=== PATIENT | male | born 1945 | race Caucasian/White ===

== ENCOUNTER 2017-04-10 13:36 | Inpatient (IN) | payer OTHER ==
[~2017-04-10] VITALS: Ht 177.8 cm; Wt 86.0 kg
[~2017-04-10 13:36] MED LIST: AMLO2.5T78 PO; CARB100T2 PO; DULO60CA59 PO; FINA5TAB4 PO; NAPR-688 PO; TAMS-14 PO
[2017-04-10] MEDS ORDERED: LORAZEPAM 2 MG INJ ONE (13:45)
[2017-04-10] MEDS ORDERED: LEVETIRACETAM 1000 MG (PMX) 100 ML IVPB ONE (14:00)
[2017-04-10] MEDS ORDERED: LORAZEPAM 2 MG INJ IV ONE (14:00)
--- NOTE | 2017-04-10 14:01 | ERD ---
ER Documentation Chief Complaint Chief Complaint bib ems post ictal , rt side weakness , rt side facial droop , non verbal HPI This is a 72-year-old male with a reported history of a seizure disorder, unclear if he is compliant on his Tegretol, hypertension, BPH who is presenting after a seizure episode with increasing confusion. The patient was reportedly at work when he had a witnessed seizure event approximately 1 hour prior to arrival. The patient was initially confused but he slowly returned to baseline and decided to return to work. However, the patient's boss felt that he was not acting quite himself so he called an ambulance. When the paramedics arrived , the patient was able to state his name. However, he slowly became more more confused and ultimately became nonverbal during transport. The patient was moving his left side, but he seemed to be ignoring his right. The patient is breathing on his own with normal vital signs in the emergency department, but he would not answer any questions. He initially seemed to be moving his left side only, but he did at one point across his right leg over his left. During the initial assessment, the patient's eyes deviated to the right and he had a witnessed generalized tonic-clonic seizure that lasted approximately 2 minutes before resolution. ROS Unable to obtain secondary to patient's altered mentation Medications Home Meds Reported Medications Tamsulosin Hcl* (Flomax*) 0.4 Mg Cap.er.24h, 0.4 MG PO DAILY, CAP 03/27/15 Amlodipine Besylate* (Amlodipine Besylate*) 2.5 Mg Tablet, 2.5 MG PO DAILY, TAB 03/27/15 Finasteride* (Finasteride*) 5 Mg Tablet, 5 MG PO DAILY, TAB 03/27/15 Carbamazepine* (Carbamazepine*) 100 Mg Tab.chew, 100 MG PO AM, TAB.CHEW 03/27/15 Carbamazepine* (Carbamazepine*) 100 Mg Tab.chew, 200 MG PO PM, TAB.CHEW 03/27/15 Duloxetine Hcl* (Duloxetine Hcl*) 60 Mg Capsule.dr, 60 MG PO DAILY, CAP 03/27/15 Naproxen* (Naproxen*) 500 Mg Tablet, 500 MG PO Q12 Y for PAIN, TAB 03/27/15 Allergies Allergies: Coded Allergies: No Known Allergy (Unverified , 10/10/14) PMhx/Soc History of Surgery: Yes (cholecystectomy-lap) Anesthesia Reaction: No Hx Neurological Disorder: Yes (seizure) Hx Respiratory Disorders: No Hx Cardiac Disorders: No Hx Psychiatric Problems: No Hx Miscellaneous Medical Probl: No Hx Alcohol Use: No Hx Substance Use: No Hx Tobacco Use: No FmHx Unable to obtain secondary to patient's altered mentation Physical Exam Vitals Vital Signs Date Time Temp Pulse Resp B/P Pulse Ox O2 Delivery O2 Flow Rate FiO2 04/10/17 14:29 80 18 140/82 100 Nasal Cannula 2.0 04/10/17 13:45 Non Rebreather 15 04/10/17 13:45 98.2 94 16 185/87 98 Physical Exam Const: Well-developed, well-nourished Head: Atraumatic Eyes: Normal Conjunctiva. Extraocular movements intact. Eyes deviated right during seizure event. ENT: Normal External Ears, Nose and Mouth. No oral trauma or tongue biting Neck: No meningismus. Resp: Clear to auscultation bilaterally. No foaming at the mouth during seizure event. Cardio: Regular rate and rhythm at baseline in the emergency department without murmurs. Patient was tachycardic into the 130s for 2 minutes during the seizure event that resolved after the event subsided. Abd: Soft, non tender, non distended. Normal bowel sounds Skin: No petechiae or rashes Back: No midline or flank tenderness Ext: No cyanosis, or edema, radial and tibial pulses strong bilaterally. Neur: Lethargic but arousable. Outside of seizure event, the patient would open his eyes to voice. He followed commands on the left side only immediately after the seizure, but later in his course followed commands in all extremities with normal strength and sensation. Cranial nerves intact. No facial droop. During the seizure event, the patient had full body tonic-clonic shaking for approximately 2 minutes. Result Diagram: 04/10/17 1355 04/10/17 1355 Results 24 hrs Laboratory Tests Test 04/10/17 13:55 White Blood Count 13.110^3/ul Red Blood Count 3.8510^6/ul Hemoglobin 12.3g/dl Hematocrit 35.9% Mean Corpuscular Volume 93.2fl Mean Corpuscular Hemoglobin 31.9pg Mean Corpuscular Hemoglobin Concent 34.3g/dl Red Cell Distribution Width 12.8% Platelet Count 42550^3/UL Mean Platelet Volume 8.8fl Neutrophils % 60.9% Lymphocytes % 30.6% Monocytes % 7.6% Eosinophils % 0.2% Basophils % 0.2% Nucleated Red Blood Cells % 0.0/100WBC Neutrophils # 8.010^3/ul Lymphocytes # 4.010^3/ul Monocytes # 1.010^3/ul Eosinophils # 0.010^3/ul Basophils # 0.010^3/ul Nucleated Red Blood Cells # 0.010^3/ul Prothrombin Time 13.6Sec Prothrombin Time Ratio 1.1 INR International Normalized Ratio 1.04 Activated Partial Thromboplast Time 29.4Sec Sodium Level 139mmol/L Potassium Level 3.3mmol/L Chloride Level 102mmol/L Carbon Dioxide Level 20mmol/L Anion Gap 20 Blood Urea Nitrogen 12mg/dl Creatinine 1.11mg/dl Glucose Level 126mg/dl Hemoglobin A1c 5.5% Calcium Level 9.3mg/dl Troponin I Pending Current Medications Medications (Trade) Dose Ordered Sig/Shagufta Route PRN Reason Start Time Stop Time Status Last Admin Dose Admin Levetiracetam (Keppra 1,000mg/ 100ml (Pmx)) 100 ml @ 400 mls/hr ONCE ONCE IVPB 04/10/17 14:00 04/10/17 14:14 DC 04/10/17 14:10 Lorazepam (Ativan) 2 mg ONCE ONCE IV 04/10/17 14:00 04/10/17 14:01 DC 04/10/17 13:48 Procedures/MDM MDM The patient's presentation warrants further investigation. I do suspect recurrent seizures as the etiology of his symptoms given his overall presentation. The patient was seizing at time of my original examination. His eyes deviated to the right with full body tonic-clonic shaking, which is typical of a seizure. The patient was given 2 mg of Ativan which broke his seizure. He will also be loaded with 1 g of Keppra. After the event, he was examined and he seemed to be neglecting his right side with decreased sensation and strength. This is possibly Tyrel's paralysis, but a stroke or hemorrhage cannot be ruled out. At this time, a code stroke was called. LABS The patient's blood work was obtained and reviewed. The patient's CBC shows a leukocytosis but no left shift. This is likely a stress reaction related to his seizure. The patient is afebrile and does not appear systemically ill. I do not suspect a systemic infection. The patient is mildly anemic today, which does not require emergent treatment. The patient's platelet count is unremarkable. The patient's BMP shows a mild anion gap metabolic acidosis, which also correlates with a seizure. I do not suspect sepsis. The patient has normal renal function testing. The patient also had mild hypokalemia that does not require emergent treatment. Patient's hemoglobin A1c is within normal limits. His troponin is indeterminate at 0.015. This may be further evaluated in the hospital, but I have low suspicion for ACS. His tegretol level is negative. EKG EKG read by me: Rate/Rhythm: Regular rate and rhythm at a rate of 81 Intervals: Normal QRS and QTc. Prolonged NH interval indicating a first-degree AV block [place]: Normal Impression: No evidence of ischemia or arrhythmia IMAGING CT Head FINDINGS: The posterior fossa structures are unremarkable. The maritza, midbrain, and medulla appear to be with normal limits. There is no evidence of acute intracranial hemorrhage, infarct, or extra-axial fluid collection. No gross mass effect or midline shift. Cerebral sulci, cisternal spaces, and ventricles are prominent. Mild periventricular white matter lucencies are noted. The visualized paranasal sinuses are clear. The mastoid air cells are well-aerated. The calvarium is unremarkable. There is an old fracture deformity of the right lamina papyracea. IMPRESSION: No evidence of acute intracranial hemorrhage, infarct, or extra- axial fluid collection. If clinical symptoms persist, or suspicion remains MRI would be more sensitive. Cortical atrophy and mild periventricular/subcortical white matter changes, likely consistent with chronic microvascular angiopathy. Electronically viewed and signed by Physician Belkis on 04/10/2017 14:08 CXR FINDINGS: The trachea is delayed towards the right. The cardiac silhouette is enlarged and pulmonary vascularity are within normal limits. The lungs are clear. The costophrenic angles are sharp. IMPRESSION: Cardiomegaly. No evidence of acute cardiopulmonary disease. Electronically viewed and signed by Physician Belkis on 04/10/2017 14:32 TREATMENT/DISPOSITION The patient's symptoms continue to resolve in the emergency department. I do suspect Tyrel's paralysis as the etiology of his transient right-sided deficits. The patient was given Ativan to break the seizure. He was bolused with Keppra. Tele-psychiatrist did evaluate the patient. He felt like his symptoms were more consistent with seizure over cerebral ischemia. We reviewed the CT scan together and we did not feel that he had a presentation concerning with stroke or hemorrhage. At this time, I feel that the patient requires admission for further evaluation and management. A Tegretol level was low, with medication noncompliance. The neurologist felt that it was appropriate for the patient to be admitted for possible adjustment of his medications. The patient had a seizure episode and did not return to baseline prior to having another seizure episode. It is unclear if he could have had a third. The patient's troponin was mildly elevated in the indeterminate region, but it was technically within the normal limits of our test. This may be trended in the hospital, but I have low suspicion for acute coronary syndrome. The patient 's EKG is also reassuring. The patient will be admitted to Dr. Sibley in accordance with the patient's insurance. The patient's blood pressure was elevated at greater than 120/80 while in the emergency department. The patient was otherwise stable with no evidence of hypertensive urgency or emergency. The patient will require reevaluation of his blood pressure, but this may ultimately be completed by a primary care physician as an outpatient. Departure Diagnosis: Primary Impression: Breakthrough seizure Additional Impressions: Tyrel's paralysis (postepileptic) Elevated troponin I level Noncompliance with medications Condition: SEE Galdamez MD Apr 10, 2017 14:01
--- NOTE | 2017-04-10 14:09 | RADRPT ---
PROCEDURE: CT BRAIN WITHOUT CONTRAST. CLINICAL INDICATION: Right-sided weakness and facial droop TECHNIQUE: A CT of the brain was performed on a multidetector high-resolution CT scanner utilizing axial imaging from the skull base through the vertex without IV contrast. Multiplanar reformatted images were made. Images were reviewed on a PACS workstation. The CTDIvol is 45 mGy and the DLP is 720.2 mGycm. One or more of the following dose reduction techniques were used: - Automated exposure control. - Adjustment of the mA and/or kV according to patient size. - Use of iterative reconstruction technique. COMPARISON: March 27, 2015 FINDINGS: The posterior fossa structures are unremarkable. The maritza, midbrain, and medulla appear to be with n ormal limits. There is no evidence of acute intracranial hemorrhage, infarct, or extra-axial fluid collection. No gross mass effect or midline shift. Cerebral sulci, cisternal spaces, and ventricles are prominent. Mild periventricular white matter lucencies are noted.. The visualized paranasal sinuses are clear. The mastoid air cells are well-aerated. The calvarium is unremarkable. There is an old fracture deformity of the right lamina papyracea. IMPRESSION: 1. No evidence of acute intracranial hemorrhage, infarct, or extra-axial fluid collection. If clinic al symptoms persist, or suspicion remains MRI would be more sensitive. 2. Cortical atrophy and mild periventricular/subcortical white matter changes, likely consistent wit h chronic microvascular angiopathy. RPTAT: AARR Physician Belkis Date Time Electronically viewed and signed by Physician Belkis on 04/10/2017 14:08 LINDA/
--- NOTE | 2017-04-10 14:23 | STROKE ---
Date/Time of Note Date/Time of Note DATE: 04/10/17 TIME: 16:22 Patient Information General Patient location: emergency Arrival Date Age 72 Gender male Weight 86 kg Vital Signs Vital Signs Vital Signs Date Time Temp Pulse Resp B/P Pulse Ox O2 Delivery O2 Flow Rate FiO2 04/10/17 13:45 Non Rebreather 15 04/10/17 13:45 98.2 94 16 185/87 98 Patient History Current Medications Allergies: Coded Allergies: No Known Allergy (Unverified , 10/10/14) Labs Hematology Labs Hematology Test 04/10/17 13:55 White Blood Count 13.110^3/ul (4.8-10.8) Red Blood Count 3.8510^6/ul (4.70-6.10) Hemoglobin 12.3g/dl (14.0-18.0) Hematocrit 35.9% (42.0-52.0) Mean Corpuscular Volume 93.2fl (82.0-101.0) Mean Corpuscular Hemoglobin 31.9pg (29.0-33.0) Mean Corpuscular Hemoglobin Concent 34.3g/dl (32.0-37.0) Red Cell Distribution Width 12.8% (11.5-14.5) Platelet Count 63474^3/UL (140-415) Mean Platelet Volume 8.8fl (7.4-10.4) Neutrophils % 60.9% (39.0-77.0) Lymphocytes % 30.6% (15.0-51.0) Monocytes % 7.6% (0.0-11.0) Eosinophils % 0.2% (0.0-7.0) Basophils % 0.2% (0.0-2.0) Nucleated Red Blood Cells % 0.0/100WBC (0.0-0.0) Neutrophils # 8.010^3/ul (1.6-7.5) Lymphocytes # 4.010^3/ul (0.8-2.9) Monocytes # 1.010^3/ul (0.3-0.9) Eosinophils # 0.010^3/ul (0.0-0.5) Basophils # 0.010^3/ul (0.0-0.1) Nucleated Red Blood Cells # 0.010^3/ul (0.0-0.0) History & Physical History of Present Illness 72 YO M with PMH seizure disorder on Tegretol with unclear compliance with two witnessed GTCs preceded by right gaze deviation, now with right hemiparesis after his second GTC. R hemiparesis rapidly resolving in ED. Loaded with Keppra 1 g and given ativan. Tegretol level sent. NIH Stroke Scale NIH Stroke Scale Total Score: 3 Date/Time Recorded DATE: 04/10/17 TIME: 16:22 Submitted By Geo Marques t-PA Imaging Review Date/Time Imaging Reviewed DATE: 04/10/17 TIME: 16:22 t-PA Administration Weight 86 kg Recommedation submitted by Geo Marques Recommendations Impression Diagnosis 72 YO M with known seizure disorder and 2 GTCs today, with R gaze deviation and now R hemiparesis after second GTC. Presentation most consistent with Tyrel's paresis. Likely L hemispheric seizure onset. Given ativan and Keppra in ED Recommendation - Agree with admission for observation - Keppra 1 g load given in ED as well as Ativan. Patient exam normalizing - No further emergent work-up for stroke - Agree with checking AED levels to investigate for noncompliance. After levels sent would administer all home AEDs - Consult local Neuro to follow and guide further care GEO MARQUES MD Apr 10, 2017 14:23
--- NOTE | 2017-04-10 14:33 | RADRPT ---
PROCEDURE: XR Chest. CLINICAL INDICATION: Short of breath TECHNIQUE: Single portable view of the chest was obtained COMPARISON: March 27, 2015 FINDINGS: The trachea is delayed towards the right. The cardiac silhouette is enlarged and pulmonary vasculari ty are within normal limits. The lungs are clear. The costophrenic angles are sharp. IMPRESSION: 1. Cardiomegaly. No evidence of acute cardiopulmonary disease. RPTAT: AARR Physician Belkis Date Time Electronically viewed and signed by Physician Belkis on 04/10/2017 14:32 JL/
[2017-04-10] MEDS ORDERED: ONDANSETRON 4 MG INJ IV PRN ×2 (15:00→16:30)
[2017-04-10] MEDS ORDERED: ACETAMINOPHEN 325 MG TAB PO PRN ×2 (15:00→16:30)
[2017-04-10] MEDS ORDERED: LORAZEPAM 2 MG INJ IV PRN (16:00)
[2017-04-10] MEDS: SOD CHLORIDE 0.9% 1,000 ML IV SCH ×2 (16:24→23:10)
[2017-04-10] MEDS ORDERED: ACETAMINOPHEN 650 MG SUPP PR PRN (16:30)
[2017-04-10] MEDS ORDERED: NACL 0.9% 3 ML SYG IV SCH (16:30)
[2017-04-10] MEDS ORDERED: MAGNESIUM HYDROXIDE 30ML CUP PO PRN (16:30)
[2017-04-10] MEDS ORDERED: DOCUSATE SODIUM 100 MG CAP PO PRN (16:30)
[2017-04-10] MEDS ORDERED: BISACODYL 10 MG SUPP PR PRN (16:30)
--- NOTE | 2017-04-10 16:58 | HP ---
Date/Time of Note Date/Time of Note DATE: 04/10/17 TIME: 16:57 Assessment/Plan VTE Prophylaxis VTE Prophylaxis Intervention: SCD's Lines/Catheters IV [facility]ter [facility]from [facility] Saline Lock Assessment/Plan Assessment/Plan 72 yo male with: 1. Seizure disorder, uncontrolled, status post general tonic-clonic seizures, undetectable level of carbamazepine. Likely noncompliant. Has been started on Keppra, appreciate recommendations from tele-neurology, outpatient medication resumed, monitor overnight. MRI brain and CT brain are both negative for acute findings. Patient's mental status seems to be back to baseline. 2. Benign prostatic hypertrophy: Continue outpatient medications 3. Hypertension: Resume Norvasc 4. Marijuana use: Medical purposes according to patient, for seizure management and insomnia Prophylaxis: SCDs for DVT ppx and Pepcid for GI ppx Disposition: Monitor overnight, is no seizures overnight, discharge planning in the morning with outpatient neurology referral/follow-up HPI/ROS Admit Date/Time Admit Date/Time Hx of Present Illness Chief complaint: Seizures History of presenting illness: This is a 72-year-old male with known epilepsy and seizures, previous admissions with seizures related to noncompliance likely , who was brought into the emergency department from his work with reported seizures. Patient proceeded and had 2 episodes of general tonic-clonic seizures in the ER. He was noted to have Tyrel's paralysis afterwards with right facial droop and right hemiparesis, he was evaluated by tele-neurology, the patient paralysis resolved quickly in the ER. CAT scan of the brain is within normal. MRI is also within normal. He is a carbamazepine level is undetectable, patient reports that he is compliant which is doubtful. He also reports that he smokes marijuana every night to control his seizures and also for insomnia. He is mental status seems to be close to baseline however he seems to be forgetful currently. His carbamazepine has been resumed as of tonight, he is also on Keppra IV. He will be observed overnight, if no seizures will plan for discharge tomorrow with additional Keppra for seizure control and outpatient follow-up with neurology. ROS Constitutional: no complaints Respiratory: no complaints Cardiovascular: no complaints Gastrointestinal: no complaints Genitourinary: no complaints Musculoskeletal: no complaints Skin: no complaints Neurologic: confusion (mild), seizure (GTC x 2 ) Psychological: no complaints Immunologic: no complaints PMH/Family/Social Past Medical History Hypertension Benign prostatic hypertrophy Seizure disorder Major depressive disorder Past Surgical History Past Surgical Hx: no surgical history Family History Significant Family History: no pertinent family hx Social History Alcohol Use: none Smoking Status: Never smoker Drug Use: marijuana (daily to sleep and for seizure management according to patient) Exam/Review of Systems Vital Signs Vitals Vital Signs Date Time Temp Pulse Resp B/P Pulse Ox O2 Delivery O2 Flow Rate FiO2 04/10/17 16:33 73 18 127/71 99 Room Air 04/10/17 14:29 2.0 04/10/17 13:45 98.2 Exam Constitutional: alert, oriented, other (Patient mental status back to baseline status post seizures), well developed Psych: no complaints Respiratory: clear to auscultation, normal air movement Cardiovascular: nl pulses, regular rate and rhythm Gastrointestinal: non-tender, soft Musculoskeletal: nl extremities to inspection Extremities: normal pulses, other (No edema, clubbing or cyanosis) Neurological: CROSS ENTERPRISE INTEGRATOR II-XII intact, nl mental status, nl speech, nl strength Labs Result Diagram: 04/10/17 1355 04/10/17 1355 Medications Medications Current Medications Amlodipine Besylate (Norvasc) 2.5 mg DAILY PO ; Start 04/11/17 at 09:00 Carbamazepine (Tegretol) 100 mg AM PO ; Start 04/11/17 at 09:00 Carbamazepine (Tegretol) 200 mg QHS PO ; Start 04/10/17 at 21:00 Duloxetine HCl (Cymbalta) 60 mg DAILY PO ; Start 04/11/17 at 09:00 Finasteride (Proscar) 5 mg DAILY PO ; Start 04/11/17 at 09:00 Tamsulosin HCl 0.4 mg 0.4 mg DAILY PO ; Start 04/11/17 at 09:00 Levetiracetam (Keppra 1,000mg/ 100ml (Pmx)) 100 ml @ 400 mls/hr Q12 IVPB ; Start 04/10/17 at 21:00 Lorazepam 1 mg 1 mg Q4H PRN IV SEIZURES; Start 04/10/17 at 16:00 Sodium Chloride (NS) 1,000 ml @ 100 mls/hr Q10H IV Last administered on t 16:24; Admin Dose 100 MLS/HR; Start 04/10/17 at 16:01 Ondansetron HCl (Zofran Inj) 4 mg Q6H PRN IV NAUSEA AND/OR VOMITING; Start at 16:30 Acetaminophen (Tylenol Tab) 650 mg Q6H PRN PO PAIN LEVEL 1-3 OR FEVER; Start 04/10/17 at 16:30 Acetaminophen (Tylenol Supp) 650 mg Q6H PRN TN PAIN LEVEL 1-3 OR FEVER; Start 04/10/17 at 16:30 Docusate Sodium (Colace) 100 mg Q12H PRN PO CONSTIPATION; Start 04/10/17 at 16 :30 Magnesium Hydroxide (Milk Of Mag) 30 ml DAILY PRN PO CONSTIPATION; Start 04/10 at 16:30 Bisacodyl (Dulcolax Supp) 10 mg DAILY PRN TN CONSTIPATION; Start 04/10/17 at 16:30 Famotidine (Pepcid Iv) 20 mg Q12 IV ; Start 04/10/17 at 21:00 Procedures Procedures PROCEDURE: CT BRAIN WITHOUT CONTRAST. CLINICAL INDICATION: Right-sided weakness and facial droop TECHNIQUE: A CT of the brain was performed on a multidetector high-resolution CT scanner utilizing axial imaging from the skull base through the vertex without IV contrast. Multiplanar reformatted images were made. Images were reviewed on a PACS workstation. The CTDIvol is 45 mGy and the DLP is 720.2 mGycm. One or more of the following dose reduction techniques were used: - Automated exposure control. - Adjustment of the mA and/or kV according to patient size. - Use of iterative reconstruction technique. COMPARISON: March 27, 2015 FINDINGS: The posterior fossa structures are unremarkable. The maritza, midbrain, and medulla appear to be with normal limits. There is no evidence of acute intracranial hemorrhage, infarct, or extra-axial fluid collection. No gross mass effect or midline shift. Cerebral sulci, cisternal spaces, and ventricles are prominent. Mild periventricular white matter lucencies are noted.. The visualized paranasal sinuses are clear. The mastoid air cells are well- aerated. The calvarium is unremarkable. There is an old fracture deformity of the right lamina papyracea. IMPRESSION: 1. No evidence of acute intracranial hemorrhage, infarct, or extra-axial fluid collection. If clinical symptoms persist, or suspicion remains MRI would be more sensitive. 2. Cortical atrophy and mild periventricular/subcortical white matter changes, likely consistent with chronic microvascular angiopathy. RPTAT: AARR Physician Belkis Date Time Electronically viewed and signed by Physician Belkis on 04/10/2017 14:08 PROCEDURE: XR Chest. CLINICAL INDICATION: Short of breath TECHNIQUE: Single portable view of the chest was obtained COMPARISON: March 27, 2015 FINDINGS: The trachea is delayed towards the right. The cardiac silhouette is enlarged and pulmonary vascularity are within normal limits. The lungs are clear. The costophrenic angles are sharp. IMPRESSION: 1. Cardiomegaly. No evidence of acute cardiopulmonary disease. RPTAT: AARR Physician Belkis Date Time Electronically viewed and signed by Physician Belkis on 04/10/2017 14:32 JL/ PROCEDURE: MR Brain without contrast. CLINICAL INDICATION: Neurologic deficit ; seizure TECHNIQUE: An MRI of the brain was performed on a high-resolution MR scanner utilizing the following sequences: Sagittal and axial T1 weighted, axial T2 weighted, axial FLAIR, coronal GRE, coronal T2, coronal T1 3-D SPGR, and axial diffusion weighted with ADC mapping. Images were reviewed high-resolution PACS workstation. No contrast was administered. COMPARISON: Head CT earlier today, brain MR 10/11/2014 FINDINGS: No acute parenchymal hemorrhage, mass effect, or midline shift. No evidence of recent infarct. Scattered subcortical, deep, and periventricular white matter T2 -weighted/FLAIR hyperintensities are consistent with chronic microvascular ischemic disease. Prominence of the cortical sulci and ventricles are related to mild cerebral volume loss. No evidence of mesial temporal sclerosis or cortical encephalomalacia. No suspicious parenchymal hypointense signal abnormalities are seen on the GRE images to suggest the presence of blood degradation products. Normal flow voids are visible in the proximal intracranial arteries suggesting their patency. No significant opacification of the paranasal sinuses or mastoids. IMPRESSION: No acute intracranial abnormality or evidence of recent infarct. Mild chronic microvascular disease. RPTAT: AA .Bautista Cheney MD, Date Time Electronically viewed and signed by .Bautista Cheney MD, MD on 04/10/2017 17:35 TANVI SMITH Apr 10, 2017 16:58
--- NOTE | 2017-04-10 17:35 | RADRPT ---
PROCEDURE: MR Brain without contrast. CLINICAL INDICATION: Neurologic deficit ; seizure TECHNIQUE: An MRI of the brain was performed on a high-resolution MR scanner utilizing the followi ng sequences: Sagittal and axial T1 weighted, axial T2 weighted, axial FLAIR, coronal GRE, coronal T 2, coronal T1 3-D SPGR, and axial diffusion weighted with ADC mapping. Images were reviewed high-res [employer] PACS workstation. No contrast was administered. COMPARISON: Head CT earlier today, brain MR 10/11/2014 FINDINGS: No acute parenchymal hemorrhage, mass effect, or midline shift. No evidence of recent infarct. Scatt ered subcortical, deep, and periventricular white matter T2-weighted/FLAIR hyperintensities are cons istent with chronic microvascular ischemic disease. Prominence of the cortical sulci and ventricles are related to mild cerebral volume loss. No evidence of mesial temporal sclerosis or cortical ence phalomalacia. No suspicious parenchymal hypointense signal abnormalities are seen on the GRE images to suggest the presence of blood degradation products. Normal flow voids are visible in the proximal intracranial arteries suggesting their patency. No significant opacification of the paranasal sinuses or mastoids. IMPRESSION: No acute intracranial abnormality or evidence of recent infarct. Mild chronic microvascular disease. RPTAT: AA .Bautista Cheney MD, Date Time Electronically viewed and signed by .Bautista Cheney MD, on 04/10/2017 17:35 .T/
[2017-04-10] MEDS ORDERED: LEVETIRACETAM 1000 MG (PMX) 100 ML IVPB SCH (21:00)
[2017-04-10] MEDS ORDERED: carBAMAZepine CHEW 100 MG CHEW PO SCH (21:00)
[2017-04-10] MEDS: FAMOTIDINE 20 MG INJ IV SCH (21:05)
[2017-04-10 22:13] VITALS: TEMP 98.7
[2017-04-10 23:30] VITALS: Ht 177.8 cm; Wt 86.0 kg
[2017-04-11] VITALS (7 sets, daily range): BP systolic 139–162; BP diastolic 71–77; PULSE 53–75; RESP 17–20
[2017-04-11] MEDS: SOD CHLORIDE 0.9% 1,000 ML IV SCH ×2 (02:01→09:54)
[2017-04-11] MEDS: FAMOTIDINE 20 MG INJ IV SCH (08:46)
[2017-04-11] MEDS ORDERED: TAMSULOSIN (SR) 0.4 MG CAP PO SCH (09:00)
[2017-04-11] MEDS ORDERED: FINASTERIDE 5 MG TAB PO SCH (09:00)
[2017-04-11] MEDS ORDERED: carBAMAZepine CHEW 100 MG CHEW PO SCH (09:00)
[2017-04-11] MEDS ORDERED: DULOXETINE 30 MG CAP DR PO SCH (09:00)
[2017-04-11] MEDS ORDERED: AMLODIPINE 2.5 MG TAB PO SCH (09:00)
[2017-04-11] MEDS ORDERED: LEVETIRACETAM 500 MG TAB PO SCH (09:30)
--- NOTE | 2017-04-11 10:32 | PN ---
Date/Time of Note Date/Time of Note DATE: 04/11/17 TIME: 10:29 Assessment/Plan VTE Prophylaxis VTE Prophylaxis Intervention: SCD's Lines/Catheters IV [facility] Type [facility] Peripheral IV Assessment/Plan Assessment/Plan 72 yo male with: 1. Seizure disorder, uncontrolled, status post general tonic-clonic seizures, undetectable level of carbamazepine on admission. Likely noncompliant. Patient was no seizures overnight, will continue Keppra 1000 mg twice daily at the time of discharge along with his carbamazepine, MRI and CAT scan of the brain are both negative, therefore patient will be discharged with outpatient follow-up with neurology. Off note patient has indicated that he is also using marijuana to control his seizures. Mental status back to baseline, no neurological deficit noted. 2. Benign prostatic hypertrophy: Continue outpatient medications 3. Hypertension: Continue Norvasc 4. Marijuana use: Medical purposes according to patient, for seizure management and insomnia Prophylaxis: SCDs for DVT ppx and Pepcid for GI ppx Disposition: Discharge home today and follow-up with outpatient primary care physician and referral to neurology for seizure disorder. Subjective 24 Hr Interval Summary Free Text/Dictation Patient doing well, no additional seizures since admission, he is eating well this morning, tolerating p.o. No neurological deficit. He will be discharged home on Keppra as an additional antiepileptic. He needs to be referred to neurology as an outpatient. Exam/Review of Systems Vital Signs Vitals Vital Signs Date Time Temp Pulse Resp B/P Pulse Ox O2 Delivery O2 Flow Rate FiO2 04/11/17 08:00 58 04/11/17 07:54 97.7 17 142/76 96 04/10/17 22:13 Room Air 04/10/17 14:29 2.0 Intake and Output 04/10/17 04/10/17 04/11/17 15:00 23:00 07:00 Intake Total 940 ml Output Total 600 ml Balance 340 ml Exam Constitutional: alert, oriented, well developed Respiratory: clear to auscultation, normal air movement Cardiovascular: nl pulses, regular rate and rhythm Gastrointestinal: non-tender, soft Musculoskeletal: nl extremities to inspection Extremities: normal pulses, other (No edema, clubbing or cyanosis) Neurological: P[employer]ED [employer] II-XII intact, nl mental status, nl speech, nl strength Results Result Diagram: 04/11/1759 04/11/1759 Results 24 hrs Laboratory Tests Test 04/10/17 13:55 04/10/17 16:55 04/10/17 17:55 04/11/17 06:59 White Blood Count 13.1 #H 7.0 # Red Blood Count 3.85 #L 3.55 L Hemoglobin 12.3 #L 11.0 L Hematocrit 35.9 L 32.9 L Mean Corpuscular Volume 93.2 92.7 Mean Corpuscular Hemoglobin 31.9 31.0 Mean Corpuscular Hemoglobin Concent 34.3 33.4 Red Cell Distribution Width 12.8 13.0 Platelet Count 240 193 Mean Platelet Volume 8.8 # 9.0 Neutrophils % 60.9 63.4 Lymphocytes % 30.6 25.7 Monocytes % 7.6 9.5 Eosinophils % 0.2 0.7 Basophils % 0.2 0.4 Nucleated Red Blood Cells % 0.0 0.0 Neutrophils # 8.0 H 4.5 Lymphocytes # 4.0 H 1.8 Monocytes # 1.0 H 0.7 Eosinophils # 0.0 0.1 Basophils # 0.0 0.0 Nucleated Red Blood Cells # 0.0 0.0 Prothrombin Time 13.6 Prothrombin Time Ratio 1.1 INR International Normalized Ratio 1.04 Activated Partial Thromboplast Time 29.4 Sodium Level 139 144 Potassium Level 3.3 L 4.5 Chloride Level 102 111 H Carbon Dioxide Level 20 L 26 Anion Gap 20 H 12 # Blood Urea Nitrogen 12 10 Creatinine 1.11 1.01 Glucose Level 126 105 Hemoglobin A1c 5.5 Calcium Level 9.3 8.7 Troponin I 0.015 Carbamazepine (Tegretol) Level < 3.0 L Creatine Kinase 285 H Urine Color STRAW Urine Clarity CLEAR Urine pH 7.0 Urine Specific [place] 1.004 Urine Ketones NEGATIVE Urine Nitrite NEGATIVE Urine Bilirubin NEGATIVE Urine Urobilinogen NEGATIVE Urine Leukocyte Esterase NEGATIVE Urine Hemoglobin NEGATIVE Urine Glucose NEGATIVE Urine Total Protein NEGATIVE Urine Opiates Screen Negative Urine Barbiturates Negative Urine Amphetamines Screen Negative Urine Benzodiazepines Screen Negative Urine Cocaine Screen Negative Urine Cannabinoids Negative Magnesium Level 2.1 Imaging Free Text/Dictation PROCEDURE: MR Brain without contrast. CLINICAL INDICATION: Neurologic deficit ; seizure TECHNIQUE: An MRI of the brain was performed on a high-resolution MR scanner utilizing the following sequences: Sagittal and axial T1 weighted, axial T2 weighted, axial FLAIR, coronal GRE, coronal T2, coronal T1 3-D SPGR, and axial diffusion weighted with ADC mapping. Images were reviewed high-resolution PACS workstation. No contrast was administered. COMPARISON: Head CT earlier today, brain MR 10/11/2014 FINDINGS: No acute parenchymal hemorrhage, mass effect, or midline shift. No evidence of recent infarct. Scattered subcortical, deep, and periventricular white matter T2 -weighted/FLAIR hyperintensities are consistent with chronic microvascular ischemic disease. Prominence of the cortical sulci and ventricles are related to mild cerebral volume loss. No evidence of mesial temporal sclerosis or cortical encephalomalacia. No suspicious parenchymal hypointense signal abnormalities are seen on the GRE images to suggest the presence of blood degradation products. Normal flow voids are visible in the proximal intracranial arteries suggesting their patency. No significant opacification of the paranasal sinuses or mastoids. IMPRESSION: No acute intracranial abnormality or evidence of recent infarct. Mild chronic microvascular disease. RPTAT: AA .Bautista Cheney MD, MD Date Time Electronically viewed and signed by .Bautista Cheney MD, MD on 04/10/2017 17:35 Medications Medications Current Medications Amlodipine Besylate (Norvasc) 2.5 mg DAILY PO Last administered on 04/11/17 08 :45; Admin Dose 2.5 MG; Start 04/11/17 at 09:00 Carbamazepine (Tegretol) 100 mg AM PO Last administered on 04/11/17 08:46; Admin Dose 100 MG; Start 04/11/17 at 09:00 Carbamazepine (Tegretol) 200 mg QHS PO Last administered on 04/10/17 21:11; Admin Dose 200 MG; Start 04/10/17 at 21:00 Duloxetine HCl (Cymbalta) 60 mg DAILY PO Last administered on 04/11/17 08:45; Admin Dose 60 MG; Start 04/11/17 at 09:00 Finasteride (Proscar) 5 mg DAILY PO Last administered on 04/11/17 08:46; Admin Dose 5 MG; Start 04/11/17 at 09:00 Tamsulosin HCl (Flomax) 0.4 mg DAILY PO Last administered on 04/11/17 08:46; Admin Dose 0.4 MG; Start 04/11/17 at 09:00 Lorazepam 1 mg 1 mg Q4H PRN IV SEIZURES; Start 04/10/17 at 16:00 Sodium Chloride (NS) 1,000 ml @ 100 mls/hr Q10H IV Last administered on 09:54; Admin Dose 100 MLS/HR; Start 04/10/17 at 16:01 Ondansetron HCl (Zofran Inj) 4 mg Q6H PRN IV NAUSEA AND/OR VOMITING; Start at 16:30 Acetaminophen (Tylenol Tab) 650 mg Q6H PRN PO PAIN LEVEL 1-3 OR FEVER; Start 04/10/17 at 16:30 Acetaminophen (Tylenol Supp) 650 mg Q6H PRN VT PAIN LEVEL 1-3 OR FEVER; Start 04/10/17 at 16:30 Docusate Sodium (Colace) 100 mg Q12H PRN PO CONSTIPATION; Start 04/10/17 at 16 :30 Magnesium Hydroxide (Milk Of Mag) 30 ml DAILY PRN PO CONSTIPATION; Start 04/10 at 16:30 Bisacodyl (Dulcolax Supp) 10 mg DAILY PRN [place] CONSTIPATION; Start 04/10/17 at 16:30 Famotidine (Pepcid Iv) 20 mg Q12 IV Last administered on 04/11/17 08:46; Admin Dose 20 MG; Start 04/10/17 at 21:00 Levetiracetam (Keppra) 1,000 mg BID PO Last administered on 04/11/17 09:57; Admin Dose 1,000 MG; Start 04/11/17 at 09:30 TANVI SMITH Apr 11, 2017 10:32
--- NOTE | 2017-04-11 10:33 | PDOCDIS ---
Discharge Instructions CONDITION Patient Condition: Stable HOME CARE INSTRUCTIONS: Diet Instructions: Regular ACTIVITY: Activity Restrictions: No Restrictions FOLLOW UP/APPOINTMENTS Follow-up Plan Follow-up with primary care physician within 1 week Referral to neurology as outpatient for known seizure disorder, status post episode of grand mal seizure related to either undermedication versus noncompliance. TANVI SMITH Apr 11, 2017 10:33
[2017-04-11] MEDS ORDERED: LEVE-5 PO (10:34)
[2017-04-11] MEDS ORDERED: FAMOTIDINE 20 MG TAB PO SCH (21:00)
== END 2017-04-11 15:35 | disposition home or self-care (01) | DRG 101 ==
LOC: E/R 13:36 → TEL 14:50
PROVIDERS: ADMIT Internal Medicine; ATTEND Internal Medicine
DX: G40.409 Other generalized epilepsy and epileptic syndromes, not intractable, without status epilepticus (principal); G83.84 Todd's paralysis (postepileptic); I10 Essential (primary) hypertension; Z91.14 Patient's other noncompliance with medication regimen; N40.0 Benign prostatic hyperplasia without lower urinary tract symptoms; F12.90 Cannabis use, unspecified, uncomplicated; F32.9 Major depressive disorder, single episode, unspecified
CPT/HCPCS: 36415; 70450; 70551; 71010; 80048; 80156; 80307; 81003; 82550; 83036; 83735; 84484; 85025; 85610; 85730; 92523; 92610; 93005; 96374; 96375; 97166; J1953; J2060; J7030

== ENCOUNTER 2017-06-21 13:04 | Emergency (ER) | END 2017-06-21 17:30 | disposition home or self-care (01) ==